=== PATIENT | male | born 1995 | race Caucasian/White ===

== ENCOUNTER 2017-02-07 20:41 | Emergency (ER) | payer MEDICAID ==
[2017-02-07 21:53] LABS: BASOPHIL % 0.2 % (0-2); PLATELET COUNT 200 x10^3mcL (130-400); RED CELL DISTRIBUTION WIDTH 12.8 % (11.5-14.5)
[2017-02-07 22:06] LABS: CALCIUM 8.3 mg/dL (8.5-10.1); CARBON DIOXIDE 30.3 mmol/L (21-32); CHLORIDE SERUM 105 mmol/L (98-107); CREATININE SERUM 1.2 mg/dL (0.7-1.3); GFR1 > 60 mL/min; GLUCOSE SERUM 117 mg/dL (74-106); POTASSIUM SERUM 3.5 mmol/L (3.5-5.1); SODIUM SERUM 141 mmol/L (136-145)
[2017-02-07 22:10] LABS: ALBUMIN 3.8 g/dL (3.4-5.0); ALKALINE PHOSPHATASE 71 U/L (46-116); ALT/SGPT 22 U/L (16-63); AMYLASE 93 U/L (25-115); AST/SGOT 23 U/L (15-37); BILIRUBIN TOTAL 0.56 mg/dL (0.20-1.00); LIPASE 81 IU/L (73-393); TOTAL PROTEIN, SERUM 7.4 g/dL (6.4-8.2)
[2017-02-08] VITALS: BP 110/80
== END 2017-02-08 | disposition home or self-care (01) ==
LOC: ED 20:41
PROVIDERS: Specialist
DX: R10.32 Left lower quadrant pain (principal); R10.12 Left upper quadrant pain; D72.829 Elevated white blood cell count, unspecified
CPT/HCPCS: 83880; J0696; J1885; J2405; J3490; J7030